=== PATIENT | male | born 1970 | race Two or more races ===

== ENCOUNTER → 2018-08-14 | Emergency (ER) | payer OTHER ==
[~2018-08-14] VITALS: Ht 185.4 cm; Wt 120.2 kg
[~2018-08-14] MED LIST: ATACAND4 MG; DIVALPROEX SOD500 M1; LAMOTRIGINE100 MG
== END | disposition left against medical advice (07) ==
LOC: ER
DX: R42 Dizziness and giddiness (principal); E16.1 Other hypoglycemia